=== PATIENT | female | born 1950 | race Caucasian/White ===

== ENCOUNTER 2020-06-27 10:38 | Outpatient (REF) | payer MEDICARE, SELFPAY ==
--- NOTE | 2020-06-27 | MM_ITS ---
EXAMINATION: MM SCREENING DIGITAL BREAST TOMOSYNTHESIS, BILATERAL CLINICAL INFORMATION: Screening. Asymptomatic. The lifetime risk of breast cancer based on the Tyrer-Cuzick Model is 8%. COMPARISON: Mammography: 06/22/2019, 06/05/2018, 06/03/2017 TECHNIQUE: Digital breast tomosynthesis is performed in both the craniocaudal and mediolateral oblique views along with computer-aided detection (CAD). Synthesized 2D images are generated from the tomosynthesis. FINDINGS: There are scattered areas of fibroglandular density (ACR BI-RADS breast composition Category b). There are no significant masses, abnormal calcifications, or other abnormalities. Parenchymal pattern is similar to prior studies. No developing density. Again, there are scattered bilateral round and rim and dermal calcifications. No significant changes. MM/MM tomosynthesis screening BI IMPRESSION: No significant changes from prior studies. ASSESSMENT: BI-RADS 2: Benign RECOMMENDATION: Routine annual mammography screening. This patient's information was entered into a reminder system with a target due date for their next mammogram.
== END 2020-06-27 10:39 | disposition home or self-care (01) ==
LOC: HO.MAMMO 10:38
PROVIDERS: PCP Internal Medicine; Visit Provider Internal Medicine
DX: Z12.31 Encounter for screening mammogram for malignant neoplasm of breast (principal)
CPT/HCPCS: 77063; 77067

== ENCOUNTER 2020-11-10 08:31 | Outpatient (REF) | payer MEDICARE, SELFPAY ==
[2020-11-10 10:12] LABS: MANUAL DIFF FLAG NO
[2020-11-10 10:21] LABS: Basophils Absolute Auto 0.1 X10*3/uL (0.0-0.2); Eosinophils Absolute Auto 0.1 X10*3/uL (0.0-0.4); Eosinophils Percent Auto 1.8 % (0-4); Hematocrit 42.3 % (37-47); Imm Gran Abs Auto 0.01 X10*3/uL (0.00-0.03); Imm Gran Pct Auto 0.2 % (0.0-0.4); Lymphocytes Absolute Auto 1.1 X10*3/uL (1.2-4.9); Lymphocytes Percent Auto 20.8 % (20-40); Mean Corpuscular HGB Conc 33.1 g/dl (31.0-35.0); Mean Corpuscular Hemoglobin 32.1 pg (27.0-33.0); Mean Platelet Volume 10.3 fL (9.4-12.3); Monocytes Absolute Auto 0.4 X10*3/uL (0.1-1.2); Monocytes Percent Auto 8.5 % (2-11); Neutrophils Absolute Auto 3.4 X10*3/uL (2.0-8.3); Neutrophils Percent Auto 67.7 % (45-73); Platelet Count 218 X10*3/uL (160-400); Red Blood Count 4.36 X10*6/uL (4.20-5.50)
[2020-11-10 11:23] LABS: Alanine Aminotransferase 15 U/L (0-31); Anion Gap 12 (12-20); Aspartate Amino Transferase 20 U/L (5-31); Blood Urea Nitrogen 13 mg/dL (9-16); Calcium 9.1 mg/dL (8.4-10.2); Carbon Dioxide 26 mmol/L (22-29); Chloride 108 mmol/L (96-108); Cholesterol 233 mg/dL; Estimated Glomerular Filt Rate > 60; Glucose Fasting 84 mg/dL (60-99); HDL Cholesterol 70 mg/dL; LDL Cholesterol Calculated 145 mg/dl; Potassium 4.1 mmol/L (3.3-5.1); Sodium 142 mmol/L (135-145); Triglycerides 94 mg/dL
[2020-11-10 11:29] LABS: Vitamin D 25-OH Total 43.5 ng/mL (>30)
== END 2020-11-10 08:32 | disposition home or self-care (01) ==
LOC: HO.10HDL 08:31
PROVIDERS: Visit Provider Internal Medicine
DX: Z00.01 Encounter for general adult medical examination with abnormal findings (principal); I10 Essential (primary) hypertension; E78.5 Hyperlipidemia, unspecified; D12.6 Benign neoplasm of colon, unspecified; Z78.0 Asymptomatic menopausal state
CPT/HCPCS: 36415; 80048; 80061; 82306; 84450; 84460; 85025

== ENCOUNTER 2021-07-10 10:01 | Outpatient (REF) | payer MEDICARE, SELFPAY ==
--- NOTE | ~2021-07-10 | MM_ITS ---
EXAMINATION: MM SCREENING DIGITAL BREAST TOMOSYNTHESIS, BILATERAL CLINICAL INFORMATION: Screening. Asymptomatic. The lifetime risk of breast cancer based on the Tyrer-Cuzick Model is 9%. COMPARISON: Mammography: 06/27/2020, 06/22/2019, 06/05/2018 TECHNIQUE: Digital breast tomosynthesis is performed in both the craniocaudal and mediolateral oblique views along with computer-aided detection (CAD). Synthesized 2D images are generated from the tomosynthesis. Additional left MLO view is provided. FINDINGS: There are scattered areas of fibroglandular density (ACR BI-RADS breast composition Category b). There are no significant masses, abnormal calcifications, or other abnormalities. MM/MM tomosynthesis screening BI IMPRESSION: There are no significant changes from prior exams. ASSESSMENT: BI-RADS 2: Benign RECOMMENDATION: Routine annual mammography screening. This patient's information was entered into a reminder system with a target due date for their next mammogram.
== END 2021-07-10 10:02 | disposition home or self-care (01) ==
LOC: HO.MAMMO 10:01
PROVIDERS: PCP Internal Medicine; Visit Provider Internal Medicine
DX: Z12.31 Encounter for screening mammogram for malignant neoplasm of breast (principal)
CPT/HCPCS: 77063; 77067

== ENCOUNTER 2021-11-11 09:25 | Outpatient (REF) | payer MEDICARE, SELFPAY ==
[2021-11-11 11:39] LABS: Alanine Aminotransferase 18 U/L (0-31); Anion Gap 13 (12-20); Aspartate Amino Transferase 19 U/L (5-31); Blood Urea Nitrogen 15 mg/dL (9-16); Calcium 9.4 mg/dL (8.4-10.2); Carbon Dioxide 25 mmol/L (22-29); Chloride 107 mmol/L (96-108); Cholesterol 221 mg/dL; Estimated Glomerular Filt Rate > 60; Glucose Fasting 90 mg/dL (60-99); HDL Cholesterol 58 mg/dL; LDL Cholesterol Calculated 145 mg/dl; Potassium 4.4 mmol/L (3.3-5.1); Sodium 141 mmol/L (135-145); Triglycerides 93 mg/dL
[2021-11-11 12:01] LABS: Vitamin D 25-OH Total 38.3 ng/mL (>30)
== END 2021-11-11 09:26 | disposition home or self-care (01) ==
LOC: HO.HMGCLDS 09:25
PROVIDERS: Visit Provider Internal Medicine
DX: Z00.00 Encounter for general adult medical examination without abnormal findings (principal); N95.9 Unspecified menopausal and perimenopausal disorder; E78.5 Hyperlipidemia, unspecified
CPT/HCPCS: 36415; 80048; 80061; 82306; 84450; 84460

== ENCOUNTER 2022-07-23 09:49 | Outpatient (REF) | payer MEDICARE, SELFPAY ==
--- NOTE | ~2022-07-23 | MM_ITS ---
EXAMINATION: MM SCREENING DIGITAL BREAST TOMOSYNTHESIS, BILATERAL CLINICAL INFORMATION: Screening. Asymptomatic. The lifetime risk of breast cancer based on the Tyrer-Cuzick Model is 6%. COMPARISON: Mammography: 07/10/2021, 06/27/2020, 06/22/2019, 06/05/2018 TECHNIQUE: Digital breast tomosynthesis is performed in both the craniocaudal and mediolateral oblique views along with computer-aided detection (CAD). Synthesized 2D images are generated from the tomosynthesis. FINDINGS: There are scattered areas of fibroglandular density (ACR BI-RADS breast composition Category b). There are no significant masses, abnormal calcifications, or other abnormalities. There are scattered stable minor asymmetries similar to prior studies. Scattered bilateral round, rim, and dermal calcifications are again seen. No significant changes from prior studies. MM/MM tomosynthesis screening BI IMPRESSION: No mammographic evidence of malignancy. ASSESSMENT: BI-RADS 2: Benign RECOMMENDATION: Routine annual mammography screening. This patient's information was entered into a reminder system with a target due date for their next mammogram.
== END 2022-07-23 09:50 | disposition home or self-care (01) ==
LOC: HO.MAMMO 09:49
PROVIDERS: PCP Internal Medicine; Visit Provider Internal Medicine
DX: Z12.31 Encounter for screening mammogram for malignant neoplasm of breast (principal)
CPT/HCPCS: 77063; 77067

== ENCOUNTER 2022-11-17 09:21 | Outpatient (REF) | payer MEDICARE, SELFPAY ==
[2022-11-17 11:09] LABS: Alanine Aminotransferase 18 U/L (0-31); Anion Gap 11 (12-20); Aspartate Amino Transferase 20 U/L (5-31); Blood Urea Nitrogen 15 mg/dL (9-16); Calcium 9.1 mg/dL (8.4-10.2); Carbon Dioxide 27 mmol/L (22-29); Chloride 108 mmol/L (96-108); Cholesterol 245 mg/dL; Estimated Glomerular Filt Rate > 60; Glucose Fasting 90 mg/dL (60-99); HDL Cholesterol 62 mg/dL; LDL Cholesterol Calculated 164 mg/dl; Potassium 4.3 mmol/L (3.3-5.1); Sodium 142 mmol/L (135-145); Triglycerides 98 mg/dL
[2022-11-17 11:18] LABS: Vitamin D 25-OH Total 48.4 ng/mL (>30)
== END 2022-11-17 09:22 | disposition home or self-care (01) ==
LOC: HO.10HDL 09:21
PROVIDERS: Visit Provider Internal Medicine
DX: Z00.01 Encounter for general adult medical examination with abnormal findings (principal); D12.6 Benign neoplasm of colon, unspecified; E78.5 Hyperlipidemia, unspecified
CPT/HCPCS: 36415; 80048; 80061; 82306; 84450; 84460

== ENCOUNTER 2022-11-22 10:57 | Outpatient (REF) | payer MEDICARE, SELFPAY ==
--- NOTE | ~2022-11-22 | MM_ITS ---
EXAMINATION: BONE DENSITOMETRY CLINICAL INDICATION: Asymptomatic menopausal state. COMPARISON: Previous BD dated 06/05/2018 and baseline BD dated 11/25/2008. TECHNIQUE: Using a [employer] Navigation DXA System (software version: 13.1) manufactured by [employer], dual-energy x-ray absorptiometry was performed of the lumbar spine and left hip. The images are of good technical quality. Summary results are attached. FINDINGS: AP SPINE L1-L4: BMD 1.279 g/cm2, Z-score 2.1, T-score 0.8, normal, 1.3% increase from previous, 3.1% increase from baseline (<5% change is not significant). Prior: BMD 1.262 g/cm2. Baseline: BMD 1.241 g/cm2. LEFT FEMUR, NECK: BMD 0.856 g/cm2, Z-score 0.3, T-score -1.3, osteopenia. Prior: BMD 1.023 g/cm2. Baseline: BMD 1.015 g/cm2. LEFT FEMUR, TOTAL: BMD 0.885 g/cm2, Z-score 0.4, T-score -1.0, normal, 12.9% decrease from previous, 12.1% decrease from baseline (<5% change is not significant). Prior: BMD 1.016 g/cm2. Baseline: BMD 1.007 g/cm2. IDENTIFIED RISK FACTORS: Menopause. HISTORY OF FRACTURE: None listed. MEDICATIONS: Calcium supplement or multivitamin. Vitamin D. MM/XR DEXA axial skeleton IMPRESSION: 1. DIAGNOSIS: Osteopenia based on the lowest T-score value of -1.3 in the femoral neck applying World Health Organization criteria. 2. 10-YEAR FRACTURE RISK PREDICTION, FRAX: Major osteoporotic fracture (clinical spine, forearm, hip or shoulder) 10.1%. Hip fracture 1.6%. 3. Treatment Recommendations: NOF guidelines recommend consideration for treatment in postmenopausal women and men age 50 and older presenting with the following: -A hip or vertebral (clinical or morphometric) fracture. -T-score less than or equal to -2.5 at the femoral neck or spine after appropriate evaluation to exclude secondary causes. -Low bone mass at the hip or spine and a 10-year fracture probability by FRAX of greater than or equal to 3% for hip fracture or greater than or equal to 20% for major osteoporotic fracture based on the [place] adapted WHO algorithm. 4. Other Recommendations: All treatment decisions require clinical judgment and consideration of individual patient factors, including patient preferences, comorbidities, previous drug use, risk factors not captured in the FRAX model (e.g. frailty, falls, vitamin D deficiency, increased bone turnover, interval significant decline in bone density) and possible under or overestimation of fracture risk by FRAX. Additional medical evaluation for secondary cause of low bone mineral density may be appropriate. FUTURE SCAN RECOMMENDATION: People with diagnosed cases of osteoporosis or at high risk for fracture should have regular bone mineral density tests. For patients eligible for Medicare, routine testing is allowed once every 2 years. The testing frequency can be increased to one year for patients who have rapidly progressing disease, those who are receiving or discontinuing medical therapy to restore bone mass, or have additional risk factors.
== END 2022-11-22 10:58 | disposition home or self-care (01) ==
LOC: HO.MAMMO 10:57
PROVIDERS: Visit Provider Internal Medicine
DX: Z13.820 Encounter for screening for osteoporosis (principal); Z78.0 Asymptomatic menopausal state
CPT/HCPCS: 77080

== ENCOUNTER → 2022-12-27 11:15 | Outpatient (BNVA) | payer MEDICARE, SELFPAY | PROVIDERS: PCP Internal Medicine; Referring Provider Internal Medicine; Visit Provider Nurse Practitioner Family | DX: Z12.11 Encounter for screening for malignant neoplasm of colon (principal); D12.6 Benign neoplasm of colon, unspecified | CPT/HCPCS: 99202 ==

== ENCOUNTER 2023-06-08 06:09 | Day surgery (SDC) | payer MEDICARE, SELFPAY ==
[2023-06-06 10:28] VITALS: BMI 28.3
--- NOTE | 2023-06-07 12:02 | HO.ANESPROP2 ---
Documented by User: Neena Hernandez NP 06/07/23 12:03 HPI - Anesthesia Eval Consult details Narrative: 72yo F for Colonoscopy PMFSH Active Problems Active Problems: All Active Problems (Updated 11/09/20 @ 10:44 by Shirlene Hua MD) Tubular adenoma of colon (Acute) Dyslipidemia (Acute) Past Medical History Medical History Tubular adenoma of colon Dyslipidemia Family History Family History Father Coronary artery disease History of [place] (myocardial infarction) CVA (cerebral vascular accident) Substance use disorder Mother CVA (cerebral vascular accident) Maternal Grandmother Parkinson's disease Paternal Grandmother Breast cancer Surgical History Surgical History H/O colonoscopy Social History Social History Housing: House Alcohol intake: current Patient Tobacco Use Status: Former Tobacco user e-Cigarette/Vaping Use: Never Used Are you DNR?: No Advance Directives: No Advance Directives Information Provided: Yes Nutrition Risks: No Nutritional Risk service: No Current occupational status: retired Cognitive needs: No Hearing needs: No Vision needs: Yes Meds Allergies Allergy/AdvReac Type Severity Reaction Status Date / Time No Known Allergies Allergy Mild N/A Verified 06/08/23 06:41 Home Medications Medication Instructions Recorded Confirmed Last Taken Type cholecalciferol (vitamin D3) 50 50 mcg PO DAILY 11/10/21 06/06/23 Unknown History mcg (2,000 unit) capsule gnsjdxi-ajixcznyk-yzdw 333 mg-133 1 tab PO DAILY 11/11/21 06/06/23 Unknown History mg-5 mg tablet Exam Exam Date and Time: June 07, 2023 120 Height,Weight and Vital Signs: Height 5 ft 5.5 in Weight 78.471 kg Assessment and Plan Assessment Anesthesia Assessment: Chart Reviewed Documented by User: Roman Capone MD 06/08/23 07:27 [facility] Past Medical History Medical History Tubular adenoma of colon Dyslipidemia Functional capacity: independent ambulation Family History Family History Father Coronary artery disease History of [place] (myocardial infarction) CVA (cerebral vascular accident) Substance use disorder Mother CVA (cerebral vascular accident) Maternal Grandmother Parkinson's disease Paternal Grandmother Breast cancer Family history of problems with anesthesia: No Surgical History Surgical History H/O colonoscopy History of Problems with Anesthesia: No Social History Social History Housing: House Alcohol intake: current Patient Tobacco Use Status: Former Tobacco user e-Cigarette/Vaping Use: Never Used Are you DNR?: No Advance Directives: No Advance Directives Information Provided: Yes Nutrition Risks: No Nutritional Risk service: No Current occupational status: retired Cognitive needs: No Hearing needs: No Vision needs: Yes Meds Allergies Allergy/AdvReac Type Severity Reaction Status Date / Time No Known Allergies Allergy Mild N/A Verified 06/08/23 06:41 Home Medications Medication Instructions Recorded Confirmed Last Taken Type cholecalciferol (vitamin D3) 50 50 mcg PO DAILY 11/10/21 06/06/23 Unknown History mcg (2,000 unit) capsule njveqkq-nicicuegn-bpzp 333 mg-133 1 tab PO DAILY 11/11/21 06/06/23 Unknown History mg-5 mg tablet Exam Airway Mallampati Class: III Loose/Missing/Broken Teeth: Yes Assessment and Plan Final Anesthetic Review Family History of Problems with Anesthesia: No History of Problems with Anesthesia: No Documented by User: Renée Yanez MD 06/08/23 07:54 [facility] Past Medical History Medical History Tubular adenoma of colon Dyslipidemia Family History Family History Father Coronary artery disease History of [place] (myocardial infarction) CVA (cerebral vascular accident) Substance use disorder Mother CVA (cerebral vascular accident) Maternal Grandmother Parkinson's disease Paternal Grandmother Breast cancer Surgical History Surgical History H/O colonoscopy Social History Social History Housing: House Alcohol intake: current Patient Tobacco Use Status: Former Tobacco user e-Cigarette/Vaping Use: Never Used Are you DNR?: No Advance Directives: No Advance Directives Information Provided: Yes Nutrition Risks: No Nutritional Risk service: No Current occupational status: retired Cognitive needs: No Hearing needs: No Vision needs: Yes Meds Allergies Allergy/AdvReac Type Severity Reaction Status Date / Time No Known Allergies Allergy Mild N/A Verified 06/08/23 06:41 Home Medications Medication Instructions Recorded Confirmed Last Taken Type cholecalciferol (vitamin D3) 50 50 mcg PO DAILY 11/10/21 06/06/23 Unknown History mcg (2,000 unit) capsule tgokcyo-aesgkhqxi-xkfe 333 mg-133 1 tab PO DAILY 11/11/21 06/06/23 Unknown History mg-5 mg tablet Exam Airway Mallampati Class: II TM Dist: >3cm Heart: rrr Lungs: cta Assessment and Plan Assessment Anesthesia Assessment: Anesthesia Plan Discussed Final Anesthetic Review NPO: Yes ASA Class: II Final Preanesthetic Review: No Changes in Pt Med Stat, Meds/Allgs Chart Reviewed, Consent Obtained/Reviewed and Anes Risks/Benef Reviewed Patient Risk: Low Procedure Risk: Low Anesthetic Plan Anesthetic Plan: MAC: Disposition: Standard PACU
--- NOTE | 2023-06-08 06:31 | MHC.SHP ---
Pre-Procedural Eval Section A Date of Service: 06/08/23 Section B Chief Complaint: Benign neoplasm of colon, unspecified Relevant Social History: None Present Medications: see Short Stay Collaborative assessment Medical History: Significant History (Tubular adenoma of colon Dyslipidemia) History of Previous Operations: Relevant previous surgery/procedure and date(s) (colonoscopy) Allergies: Allergies Allergy/AdvReac Type Severity Reaction Status Date / Time No Known Allergies Allergy Mild N/A Verified 12/27/22 11:41 Review of Systems Sugical H&P ROS: Negative: Constitution, Cardiovascular, Respiratory, Neurological, Psychiatric, Hem-Onc, Allergic/Immunologic, Gastrointestinal, Genitourinary, Musculoskeletal, Integumentary, Endocrine and Eyes/Ears/Nose/Throat Exam Surgical H&P Exam: Normal: HEENT, Normal: Heart, Normal: Lungs, Normal: Extremities, Normal: Abdomen, Normal: Skin and Normal: Neurological Plan I have reviewed the history and physical and performed a pertinent physical examination on my patient. No changes have occurred unless specified. Time Spent With Patient Time: Total time managing care of this patient today ____ minutes.
[2023-06-08] MEDS: Lactated Ringers 1,000 ML 100 ML IVCONT (06:32)
[2023-06-08 06:41] VITALS: BP 142/81; PULSE 88; RESP 18; TEMP 36.6; O2SAT 96
--- NOTE | 2023-06-08 08:11 | W.PM.OPN ---
Operative Note Operative Note Date of Service: 06/08/23 Narrative: Operative Information Procedure Description: Colonoscopy Indication: screening Anesthesia: MAC COLONOSCOPY Instrument: Olympus variable stiffness pediatric scope 190L Colonoscopy Monitoring: Vital signs and clinical assessment, continuous EKG monitoring, Pulse oximetry, Carbon Dioxide monitoring and blood pressure monitoring were done throughout the procedure. Colon withdrawal time was 11 minutes. Procedure: The patient was placed in the left lateral decubitis position and pre-procedure medications were administered. After a digital rectal examination of the ano-rectum, the video colonoscope was inserted into the rectum and advanced through the colon to the cecum/TI. The colonoscope was slowly withdrawn in a retrograde panoramic fashion and the colon mucosa was carefully examined including a retroflexed view of the rectum. Findings and interventions are described below. Procedure Difficulty: difficult, pressure applied to RLQ to gain access to cecum Findings: Terminal Ileum-not intubated due to looping, Cecum:normal Ascending Colon: few tics noted Transverse Colon -normal Descending Colon:normal Sigmoid Colon: severe diverticulosis with narrow lumen and mucosal hypertrophy Rectum: Retroflexion with medium sized internal hemorrhoids, grade II Anorectum - normal Colon preparation: [place] Bowel Preparation Scale Right colon; 2 Transverse colon: 2 Left colon; 2 (0 = Unprepared colon segment with mucosa not seen due to solid stool that cannot be cleared. 1 = Portion of mucosa of the colon segment seen, but other areas of the colon segment not well seen due to staining, residual stool and/or opaque liquid. 2 = Minor amount of residual staining, small fragments of stool and/or opaque liquid, but mucosa of colon segment seen well. 3 = Entire mucosa of colon segment seen well with no residual staining, small fragments of stool or opaque liquid) Impression and Post Procedure Diagnosis: internal hemorrhoids diverticular disease Plan: High fiber diet leaflet Avoid straining at stool, epsom salts and sitz bath, anusol supps or cream Repeat Colonoscopy in 10 years if health allows or earlier if clinically indicated Above findings were reviewed with the patient and relevant handouts were provided if indicated.
[2023-06-08 08:15] VITALS: BP 105/61; PULSE 63; RESP 20; TEMP 36.3; O2SAT 98
[2023-06-08 08:30] VITALS: BP 123/78; PULSE 68; RESP 18; TEMP 36.1; O2SAT 98
== END 2023-06-08 09:00 | disposition home or self-care (01) ==
PROVIDERS: PCP Internal Medicine; Visit Provider Internal Medicine Gastroenterology
PROC: 0DJD8ZZ Inspection of Lower Intestinal Tract, Via Natural or Artificial Opening Endoscopic (ICD-10-PCS; CPT 45378; principal; 2023-06-08 07:30)
DX: Z12.11 Encounter for screening for malignant neoplasm of colon (principal); Z86.010 Personal history of colon polyps; K57.30 Diverticulosis of large intestine without perforation or abscess without bleeding; K64.1 Second degree hemorrhoids; K56.2 Volvulus; E78.5 Hyperlipidemia, unspecified; Z87.891 Personal history of nicotine dependence; Z79.899 Other long term (current) drug therapy
CPT/HCPCS: G0105

== ENCOUNTER → 2023-06-08 06:09 | Outpatient (BNV) | payer MEDICARE, SELFPAY | PROVIDERS: PCP Internal Medicine; Visit Provider Internal Medicine Gastroenterology | DX: Z12.11 Encounter for screening for malignant neoplasm of colon (principal); K57.30 Diverticulosis of large intestine without perforation or abscess without bleeding; K64.1 Second degree hemorrhoids | CPT/HCPCS: G0121 ==

== ENCOUNTER 2023-06-21 11:52 | Outpatient (AMB) | payer MEDICARE, SELFPAY ==
[2023-06-21 11:54] VITALS: BP 144/71; PULSE 80; O2SAT 98; BMI 25.9
--- NOTE | 2023-06-21 11:54 | MHC.OFFVIS ---
Intake Vital Signs 06/21/23 11:54 Height 5 ft 5.5 in Weight 157 lb 13.616 oz BMI 25.9 BP 144/71 H Blood Pressure Location Rt brachial Position Sitting Pulse 80 Pulse Source Pulse Oximeter Pulse Oximetry (%) 98 Oxygen Delivery Method Room Air Intake Visit Reasons: S/p colon Gonzalez Intake Note: Pt presents to the office today for a s/p Colonoscopy. Pt states she is feeling well and denies any issues at this time. Pt denies any GI upset. Allergies No Known Allergies Allergy (Mild, Verified 06/21/23 11:54) N/A HPI S/p colon Gonzalez HPI Details LAST VISIT: Tubular adenoma of colon Screen for colon cancer Patient denies any GI, cardiac or respiratory symptoms.? Denies any issues with anesthesia in the past.? Denies any history of sleep apnea.? No history infectious diseases in the past or present.? Not on any anticoagulation therapy.? Last colonoscopy patient had tubular adenoma. Patient denies melena, hematochezia, unintentional weight loss or ribbon like stools.? Discussed at length the pre-procedure,? prep, diet & medications as well as what to expect prior, during and after the procedure.?? Stressed the importance of good bowel prep. ?Recommended the use of Vaseline or Calmoseptine OTC & baby wipes with bowel movements to promote comfort.? ?Patient verbalizes understanding and agrees to plan of care.? She was given the opportunity to ask questions and all questions answered.? We will see her after the procedure. COLONOSCOPY Findings: Terminal Ileum-not intubated due to looping, Cecum:normal Ascending Colon: few tics noted Transverse Colon -normal Descending Colon:normal Sigmoid Colon: severe diverticulosis with narrow lumen and mucosal hypertrophy Rectum: Retroflexion with medium sized internal hemorrhoids, grade II Anorectum - normal Colon preparation: [place] Bowel Preparation Scale Right colon; 2 Transverse colon: 2 Left colon; 2 (0 = Unprepared colon segment with mucosa not seen due to solid stool that cannot be cleared. 1 = Portion of mucosa of the colon segment seen, but other areas of the colon segment not well seen due to staining, residual stool and/or opaque liquid. 2 = Minor amount of residual staining, small fragments of stool and/or opaque liquid, but mucosa of colon segment seen well. 3 = Entire mucosa of colon segment seen well with no residual staining, small fragments of stool or opaque liquid) Impression and Post Procedure Diagnosis: internal hemorrhoids diverticular disease Plan: High fiber diet leaflet Avoid straining at stool, epsom salts and sitz bath, anusol supps or cream Repeat Colonoscopy in 10 years if health allows or earlier if clinically indicated TODAY'S VISIT: Patient is here today for follow-up and to discuss colonoscopy results. Patient denies any ill effects from the prep, anesthesia procedure itself. Patient states that she has been feeling well. Denies any abdominal pain or discomfort. Denies any melena, hematochezia, unintentional weight loss or ribbon like stools. Patient denies any GI concerning symptoms today or since the procedure. Wishes to follow-up on as needed basis [facility] Medical History Tubular adenoma of colon Dyslipidemia Surgical History H/O colonoscopy Family History Father Coronary artery disease History of [place] (myocardial infarction) CVA (cerebral vascular accident) Substance use disorder Mother CVA (cerebral vascular accident) Maternal Grandmother Parkinson's disease Paternal Grandmother Breast cancer Social History (Updated 06/21/23 @ 11:59 by Eve Grant MA) Housing: House Alcohol intake: never Patient Tobacco Use Status: Former Tobacco user e-Cigarette/Vaping Use: Never Used service: No Current occupational status: retired Cognitive needs: No Hearing needs: No Vision needs: Yes Review of Systems Const Denies weight gain and Denies weight loss ENT Reports no additional complaints, Denies dysphagia and Denies odynophagia Card Reports no additional complaints Resp Reports no additional complaints GI Denies abdominal pain, Denies belching, Denies melena, Denies bloating, Denies change in bowel habits, Denies dysphagia, Denies excessive flatus, Denies dyspepsia, Denies heartburn, Denies diarrhea, Denies loose stools, Denies nausea, Denies odynophagia and Denies vomiting Reports no additional complaints Musc Reports no additional complaints Neuro Reports no additional complaints Psych Reports no additional complaints Endo Reports no additional complaints Physical Exam Vital Signs: Last Vital Signs Pulse 80 06/21/23 11:54 BP 144/71 H 06/21/23 11:54 Pulse Ox 98 06/21/23 11:54 Oxygen Delivery Method Room Air 06/21/23 11:54 BMI result Body Mass Index 25.9 Const General: healthy appearing, no acute distress and well developed Nutritional Appearance: well nourished Orientation/consciousness: patient oriented x3 HEENT Head: Yes normal to inspection, Yes normocephalic and Yes atraumatic Face and sinus: Yes normal facial exam Mouth: Normal oral and palatal mucosa present Throat: Yes posterior oropharynx normal, Yes tonsils normal and Yes uvula midline Eyes General: appearance normal, both eyes and all related structures Neck Neck: Yes normal visual inspection, Yes full ROM and Yes trachea midline Thyroid: Thyroid normal Resp Effort & Inspection: normal respiratory effort, able to speak in complete sentences, no tracheal deviation and symmetric chest movement Auscultation: clear to auscultation bilaterally Cardio Rate: regular rate Heart sounds: S1 normal heart sound present and S2 normal heart sound present GI Inspection: Yes normal to inspection and No distended Palpation (GI): Soft to palpation, not firm, nontender and No hepatosplenomegaly present Auscultation: normal bowel sounds General: Yes no CVA tenderness Back/Spine/Pelvis Back: no CVA tenderness Skin General skin exam: elasticity normal, turgor normal and dry skin Neuro General: patient oriented x3 Psych Appearance: grossly normal Mental Status: mental status grossly normal Assessment & Plan Assessment & Plan (1) Status post colonoscopy: Code(s): Z98.890 - Other specified postprocedural states Plan Patient had tubular adenoma in 2018 and 2019. She will return in 5 years instead of 10 years for colorectal screening. Patient is agreeable to this plan and verbalizes understanding of instructions. She will follow up on as needed basis. She was given the opportunity to ask questions and all questions answered. Thank you for allowing me to participate in her care Coding Level of Care Code Est Pt Level 3 (10631) Diagnoses Status post colonoscopy Z98.890 Time Spent (min) 25 Comment 15 minutes spent with patient and additional 10 minutes spent reviewing her records
== END 2023-06-21 13:22 | disposition home or self-care (01) ==
PROVIDERS: PCP Internal Medicine; Visit Provider Nurse Practitioner Family
DX: Z98.890 Other specified postprocedural states (principal)
CPT/HCPCS: 99213

== ENCOUNTER → 2023-06-21 11:52 | Outpatient (BNVA) | payer MEDICARE, SELFPAY | PROVIDERS: PCP Internal Medicine; Visit Provider Nurse Practitioner Family | DX: Z98.890 Other specified postprocedural states (principal) | CPT/HCPCS: 99212 ==

== ENCOUNTER 2023-09-02 09:50 | Outpatient (REF) | payer MEDICARE, SELFPAY | END 2023-09-02 09:51 | disposition home or self-care (01) | LOC: HO.MAMMO 09:50 | PROVIDERS: PCP Internal Medicine; Visit Provider Internal Medicine | DX: Z12.31 Encounter for screening mammogram for malignant neoplasm of breast (principal) | CPT/HCPCS: 77063; 77067 ==

== ENCOUNTER → 2023-09-02 10:00 | Outpatient (BNV) | payer MEDICARE, SELFPAY | PROVIDERS: PCP Internal Medicine; Visit Provider Radiology Diagnostic Radiology | DX: Z12.31 Encounter for screening mammogram for malignant neoplasm of breast (principal) | CPT/HCPCS: 77063; 77067 ==

== ENCOUNTER 2023-11-23 10:50 | Outpatient (AMB) | payer MEDICARE, SELFPAY ==
[2023-11-23 11:26] VITALS: BP 130/72; PULSE 83; O2SAT 96; BMI 26.1
--- NOTE | 2023-11-23 11:26 | MHC.PC.OV ---
Vital Signs 11/23/23 11:26 Height 5 ft 5.5 in Weight 159 lb 7 oz BMI 26.1 BP 130/72 Blood Pressure Location Rt brachial Position Sitting Pulse 83 Pulse Source Pulse Oximeter Pulse Oximetry (%) 96 Oxygen Delivery Method Room Air Intake Visit Reasons: PE Intake Note: Pt is here today for a Annual Physical. Last Mammogram 09/02/23 Last Colonoscopy 05/2023 Last Bone Density 11/22/22 Allergies No Known Allergies Allergy (Mild, Verified 11/23/23 11:48) N/A Medication List - Last Reconciled 11/23/23 by Shirlene Hua MD [id number] mg 1 tab PO DAILY cholecalciferol (vitamin D3) 50 mcg PO DAILY Tobacco use date assessed: 11/23/23 Fall risk assessment: No Falls in past year Last assessed Fall Risk: 11/23/23 Dental Screening Dental Screen Date: 11/23/23 Did you have a dental visit in the last 12 months?: Yes Did you have a dental problem in the last 6 months where you did not have access to dental care?: No Was dental information given to patient?: Patient has dentist HPI PE HPI Details 73-year-old lady with history of dyslipidemia and tubular adenoma of colon, here today for her physical exam. She is up-to-date with her screening mammogram, last done 09/02/23 with benign findings and had a bone density scan done 11/22/2022 which showed only presence of beginning osteopenia in her left femoral neck. No history of fractures. She stays active, walks every day for exercise and takes calcium and magnesium supplements. Her last screening colonoscopy was done 06/08/2023 with no polyps seen, presence of hemorrhoids and diverticulosis only noted. However due to history of adenomatous polyps in the past, she is due for a recheck again in 2027. [facility] Medical History History of adenomatous polyp of colon Tubular adenoma of colon Dyslipidemia Surgical History (Updated 11/23/23 @ 12:21 by Shirlene Hua MD) H/O colonoscopy Family History Father Coronary artery disease History of CA (myocardial infarction) CVA (cerebral vascular accident) Substance use disorder Mother CVA (cerebral vascular accident) Maternal Grandmother Parkinson's disease Paternal Grandmother Breast cancer Social History Housing: House Alcohol intake: never Patient Tobacco Use Status: Former Tobacco user e-Cigarette/Vaping Use: Never Used service: No Current occupational status: retired Cognitive needs: No Hearing needs: No Vision needs: Yes Questionnaire PHQ-9 Over the last 2 weeks, how often have you been bothered by any of the following problems? 1. Little interest or pleasure in doing things: not at all 2. Feeling down, depressed, or hopeless: not at all 3. Trouble falling or staying asleep, or sleeping too much: not at all 4. Feeling tired or having little energy: not at all 5. Poor appetite or overeating: not at all 6. Feeling bad about yourself - or that you are a failure or have let yourself or your family down: not at all 7. Trouble concentrating on things, such as reading the newspaper or watching television: not at all 8. Moving or speaking so slowly that other people could have noticed. Or the opposite - being so fidgety or restless that you have been moving around a lot more than usual: not at all 9. Thoughts that you would be better off or of hurting yourself in some way: not at all Total score: 0 Depression Screening Interpretation: Negative Depression Screening Done: Yes 84891 - PHQ-9 Billing: Yes Source: Developed by Drs. Dharmesh Cool, Diane Pace, Sawyer Wong and colleagues, with an educational waylon from [employer]. Thrive Questionnaire Date Thrive assessed: 11/23/23 I am a: Patient What is your living situation today?: I have a steady place to live Within the past 12 months, did the food you bought not last and you didn't have the money to get more?: Never true Within the past 12 months, did you worry whether your food would run out before you got money to buy more?: Never true Do you have trouble paying for medicines?: No Do you have trouble getting transportation to medical appointments?: No Do you have trouble paying your heating and electricity bill?: No Do you have trouble taking care of your child, family member or friend?: No Do you have trouble with day-to-day activities such as bathing, preparing meals, shopping, managing finances, etc.?: No Are you currently unemployed and looking for a job?: No Are you interested in more education?: No THRIVE Score: 0 AUDIT C Alcohol Use Questionnaire (AUDIT-C) 1. How often do you have a drink containing alcohol?: Monthly or less 2. How many drinks containing alcohol do you have on a typical day when you are drinking?: 1 or 2 3. How often do you have six or more drinks on one occasion?: Never Total Score: 1 Score Reviewed/Action Taken: Yes MADISON-7 AMB Questionnaire MADISON-7 Date MADISON - 7 assessed: 11/23/23 Feeling nervous, anxious, or on edge: 0 = Not at all Not being able to stop or control worryin = Not at all Worrying too much about different things: 0 = Not at all Trouble relaxin = Not at all Being so restless that it is hard to sit still: 0 = Not at all Becoming easily annoyed or irritable: 0 = Not at all Feeling afraid as if something awful might happen: 0 = Not at all Total MADISON-7 score (0-4 normal; 5-9 mild; 10-14 moderate; 15-21 severe): 0 Source: Developed by Drs. Dharmesh Cool, Diane Pace, Sawyer Wong and colleagues, with an educational waylon from [employer] 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, beginning cataracts noted on right eye Reports no additional complaints ENT Reports no additional complaints Card Denies chest pain at rest, Denies chest pain with activity, Denies irregular heart rhythm, Denies lightheadedness, Denies dyspnea and Denies dyspnea on exertion Resp Denies cough, Denies dyspnea and Denies dyspnea on exertion GI Reports no additional complaints Reports no additional complaints and Denies urinary incontinence Musc Reports no additional complaints and Denies abnormal gait Skin/Breast Denies breast skin changes, Denies breast pain, Denies breast mass, Denies lesions and Denies rash Neuro Reports no additional complaints and Denies abnormal gait Psych Reports no additional complaints Endo Reports no additional complaints Ok/Lymph Reports no additional complaints Aller/Immun Reports no additional complaints Physical exam (Primary Care) Vital Signs: Last Vital Signs Pulse 83 11/23/23 11:26 BP 130/72 11/23/23 11:26 Pulse Ox 96 11/23/23 11:26 Oxygen Delivery Method Room Air 11/23/23 11:26 BMI result Body Mass Index 26.1 Tobacco/Smoking Status: Tobacco use Status Tobacco use date assessed 11/23/23 11/23/23 11:32 Patient Tobacco Use Status Former Tobacco user 11/23/23 11:28 e-Cigarette/Vaping Use Never Used 11/23/23 11:28 PHQ-9: PHQ-9 Score PHQ-9: Total score 0 11/23/23 12:56 Depression Screening Interpretation: Negative Thrive Assessment: Date of Thrive Assessment Date Thrive assessed 11/23/23 11/23/23 12:32 Const Other: Alert oriented x3 no acute distress noted ambulatory with normal gait Orientation/consciousness: patient oriented x3 HENMT Head: Yes normocephalic Ears: hearing grossly normal bilaterally, external ears normal, TM's normal bilaterally and EAC's normal General nose exam: Normal external nose present and No nasal discharge present Face and sinus: Yes face symmetric Mouth: Normal oral and palatal mucosa present, oropharynx normal and moist mucous membranes Eyes General: appearance normal, both eyes and all related structures Neck Neck: Yes full ROM, Yes no lymphadenopathy and Yes supple Thyroid: Thyroid normal Chest Breast/axilla palpation: normal palpation of the breasts Resp Auscultation: clear to auscultation bilaterally Cardio Other: S1-S2 present regular rate and rhythm no murmurs GI Other: Normal bowel sounds, soft, nontender, no mass palpated General: Yes no CVA tenderness Back/Spine/Pelvis Back: no CVA tenderness and No back tenderness Skin General skin exam: no rashes or lesions noted Neuro General: patient oriented x3, gait normal, tone normal, moves all extremities, Normal light touch and pain sensation, no focal motor deficits and CN's II-XI intact bilaterally Extrem General: Yes normal to inspection, Yes full ROM, Yes capillary refill normal, Yes no joint enlargement, Yes no pedal edema, Yes no calf tenderness and Yes normal gait Psych Appearance: grossly normal Mental Status: mental status grossly normal Speech and movement: Normal speech and movement present Affect: normal affect Attitude: cooperative Thought process: Normal thought process present Thought content: Normal thought content present Assessment and Plan Assessment & Plan (1) Annual visit for general adult medical examination with abnormal findings: Code(s): Z00.01 - Encounter for general adult medical examination with abnormal findings Plan: Recent fasting labs reviewed with patient.. Continue with regular dental visit every 6 months and regular eye exams, at least every 2 years. Continue with vitamin-D 3 and calcium supplement, in addition to weight-bearing exercises to help maintain good muscle tone and weight control. Instructed to do self-breast exam, and continue with yearly mammogram, currently up-to-date, up-to-date also with her bone density scan done in 2022 which showed presence of beginning osteopenia left femoral neck. Repeat again in 2024. Up-to-date with her screening colonoscopy done in 2022, due again in 2027 due to history of adenomatous polyp removed on previous colonoscopy screenings up-to-date with her vaccines, reminded to get her shingles vaccine (2) Dyslipidemia: Code(s): E78.5 - Hyperlipidemia, unspecified Plan: Repeat screening colonoscopy due again in 2027 (3) History of adenomatous polyp of colon: Code(s): Z86.010 - Personal history of colonic polyps Plan: Fasting lipid panel ordered today, continue adherence to healthy eating habits, getting regular exercise, walks daily Orders: Orders Lipid Panel Today D12.6 - Benign neoplasm of colon, unspecified, E78.5 - Hyperlipidemia, unspecified, Z00.01 - Encounter for general adult medical examination with abnormal findings, Z86.010 - Personal history of colonic polyps Aspartate Amino Transferase Today D12.6 - Benign neoplasm of colon, unspecified, E78.5 - Hyperlipidemia, unspecified, Z00.01 - Encounter for general adult medical examination with abnormal findings, Z86.010 - Personal history of colonic polyps Complete Blood Count Auto Diff Today D12.6 - Benign neoplasm of colon, unspecified, E78.5 - Hyperlipidemia, unspecified, Z00.01 - Encounter for general adult medical examination with abnormal findings, Z86.010 - Personal history of colonic polyps Vitamin D 25-OH Total Today D12.6 - Benign neoplasm of colon, unspecified, E78.5 - Hyperlipidemia, unspecified, Z00.01 - Encounter for general adult medical examination with abnormal findings, Z86.010 - Personal history of colonic polyps Alanine Aminotransferase Today D12.6 - Benign neoplasm of colon, unspecified, E78.5 - Hyperlipidemia, unspecified, Z00.01 - Encounter for general adult medical examination with abnormal findings, Z86.010 - Personal history of colonic polyps Basic Metabolic Panel Fasting Today D12.6 - Benign neoplasm of colon, unspecified, E78.5 - Hyperlipidemia, unspecified, Z00.01 - Encounter for general adult medical examination with abnormal findings, Z86.010 - Personal history of colonic polyps Coding Level of Care Code Est Pt Prev Care >65y(63145) Diagnoses Annual visit for general adult medical examination with abnormal findings Z00.01 Dyslipidemia E78.5 History of adenomatous polyp of colon Z86.010 Additional Codes MADISON-7 Assessment Billing - MADISON-7 Assessment Tool: MADISON-7 Assessment [id number] ([id number])
== END 2023-11-23 12:11 | disposition home or self-care (01) ==
PROVIDERS: Visit Provider Internal Medicine
DX: Z00.00 Encounter for general adult medical examination without abnormal findings (principal); E78.5 Hyperlipidemia, unspecified; Z86.010 Personal history of colon polyps
CPT/HCPCS: 99397

== ENCOUNTER 2023-11-24 10:25 | Outpatient (REF) | payer MEDICARE, SELFPAY ==
[2023-11-24 11:05] LABS: MANUAL DIFF FLAG NO
[2023-11-24 11:11] LABS: Basophils Absolute Auto 0.1 X10*3/uL (0.0-0.2); Eosinophils Absolute Auto 0.1 X10*3/uL (0.0-0.4); Eosinophils Percent Auto 2.5 % (0-4); Hematocrit 40.5 % (37.0-47.0); Hemoglobin 13.8 g/dl (12.0-16.0); Imm Gran Abs Auto 0.01 X10*3/uL (0.00-0.03); Imm Gran Pct Auto 0.2 % (0.0-0.4); Lymphocytes Absolute Auto 1.2 X10*3/uL (1.2-4.9); Lymphocytes Percent Auto 23.7 % (20-40); Mean Corpuscular HGB Conc 34.1 g/dl (31.0-35.0); Mean Corpuscular Hemoglobin 32.2 pg (27.0-33.0); Mean Corpuscular Volume 94.4 fL (80.0-98.0); Mean Platelet Volume 9.6 fL (9.4-12.3); Monocytes Absolute Auto 0.4 X10*3/uL (0.1-1.2); Monocytes Percent Auto 7.9 % (2-11); Neutrophils Absolute Auto 3.4 x10*3/uL (2.0-8.3); Neutrophils Percent Auto 64.7 % (45-73); Platelet Count 220 X10*3/uL (160-400); Red Blood Count 4.29 X10*6/uL (4.20-5.50); Red Cell Distribution Width 12.1 % (11.0-16.0); White Blood Count 5.2 X10*3/uL (4.8-10.8)
[2023-11-24 11:38] LABS: Alanine Aminotransferase 17 U/L (0-31); Anion Gap 11 (12-20); Aspartate Amino Transferase 20 U/L (5-31); Blood Urea Nitrogen 15 mg/dL (9-16); Calcium 9.6 mg/dL (8.4-10.2); Carbon Dioxide 27 mmol/L (22-29); Chloride 107 mmol/L (96-108); Cholesterol 230 mg/dL (<200); Estimated Glomerular Filt Rate > 60; Glucose Fasting 96 mg/dL (60-99); HDL Cholesterol 62 mg/dL (>40); LDL Cholesterol Calculated 148 mg/dL (<100); Potassium 4.1 mmol/L (3.3-5.1); Sodium 141 mmol/L (135-145); Triglycerides 102 mg/dL (<150)
[2023-11-24 11:40] LABS: Vitamin D 25-OH Total 55.4 ng/mL (>30)
== END 2023-11-24 10:26 | disposition home or self-care (01) ==
LOC: HO.10HDL 10:25
PROVIDERS: Visit Provider Internal Medicine
DX: Z00.01 Encounter for general adult medical examination with abnormal findings (principal); D12.6 Benign neoplasm of colon, unspecified; E78.5 Hyperlipidemia, unspecified; Z86.010 Personal history of colon polyps
CPT/HCPCS: 36415; 80048; 80061; 82306; 84450; 84460; 85025

== ENCOUNTER 2024-09-07 09:55 | Outpatient (REF) | payer MEDICARE, SELFPAY | END 2024-09-07 09:56 | disposition home or self-care (01) | LOC: HO.MAMMO 09:55 | PROVIDERS: PCP Internal Medicine; Visit Provider Internal Medicine | DX: Z12.31 Encounter for screening mammogram for malignant neoplasm of breast (principal) | CPT/HCPCS: 77063; 77067 ==

== ENCOUNTER → 2024-09-07 10:00 | Outpatient (BNV) | payer MEDICARE, SELFPAY | PROVIDERS: PCP Internal Medicine; Visit Provider Internal Medicine | DX: Z12.31 Encounter for screening mammogram for malignant neoplasm of breast (principal) | CPT/HCPCS: 77063; 77067 ==

== ENCOUNTER 2024-12-03 10:46 | Outpatient (AMB) | payer MEDICARE, SELFPAY ==
--- NOTE | 2024-12-03 11:16 | MHC.PC.OV ---
Vital Signs 12/03/24 11:32 Height 5 ft 5.5 in Weight 173 lb BMI 28.3 BP 132/74 Blood Pressure Location Lt brachial Position Sitting Respiration 16 Pulse 77 Pulse Source Pulse Oximeter Temp 97.8 F Temp Source Oral Pulse Oximetry (%) 94 Oxygen Delivery Method Room Air Intake Visit Reasons: PE Intake Note: Pt is here today for her PE: last mammogram 09/07/24, bone density scan 11/22/22, colonoscopy 06/08/23 Allergies No Known Allergies Allergy (Mild, Verified 12/03/24 11:54) N/A Medication List - Last Reconciled 12/03/24 by Shirlene Hua MD [id number] mg 1 tab PO DAILY cholecalciferol (vitamin D3) 50 mcg PO DAILY Tobacco use date assessed: 12/03/24 Fall risk assessment: No Falls in past year Last assessed Fall Risk: 12/03/24 Dental Screening Dental Screen Date: 12/03/24 Did you have a dental visit in the last 12 months?: Yes Did you have a dental problem in the last 6 months where you did not have access to dental care?: No Was dental information given to patient?: Patient has dentist HPI PE HPI Details 74-year-old lady with history of dyslipidemia, adenomatous polyp of colon on previous colonoscopy, has osteopenia of left femoral neck, here today for her physical exam. Has been feeling well, no accompanying complaints. She is up-to-date with her breast cancer screening, last mammogram done earlier this year on 09/07/2024 with benign findings. She had a screening colonoscopy done 06/08/2023 showing hemorrhoids and diverticulosis, done by Dr. Gonzalez but due to history of polyps in the past, repeat colonoscopy is to be done again in 2027. Bone density was done 11/22/2022 which showed presence of osteopenia of left femoral neck, no history of fracture COUNT INCLUDES THE [facility] Medical History (Updated 12/03/24 @ 12:01 by Shirlene Hua MD) Osteopenia of left femoral neck History of adenomatous polyp of colon Tubular adenoma of colon Dyslipidemia Surgical History H/O colonoscopy Family History Father Coronary artery disease History of CO (myocardial infarction) CVA (cerebral vascular accident) Substance use disorder Mother CVA (cerebral vascular accident) Maternal Grandmother Parkinson's disease Paternal Grandmother Breast cancer Social History Housing: House Alcohol intake: never Patient Tobacco Use Status: Former Tobacco user e-Cigarette/Vaping Use: Never Used service: No Current occupational status: retired Cognitive needs: No Hearing needs: No Vision needs: Yes Questionnaire PHQ-9 Over the last 2 weeks, how often have you been bothered by any of the following problems? 1. Little interest or pleasure in doing things: not at all 2. Feeling down, depressed, or hopeless: not at all 3. Trouble falling or staying asleep, or sleeping too much: not at all 4. Feeling tired or having little energy: not at all 5. Poor appetite or overeating: not at all 6. Feeling bad about yourself - or that you are a failure or have let yourself or your family down: not at all 7. Trouble concentrating on things, such as reading the newspaper or watching television: not at all 8. Moving or speaking so slowly that other people could have noticed. Or the opposite - being so fidgety or restless that you have been moving around a lot more than usual: not at all 9. Thoughts that you would be better off or of hurting yourself in some way: not at all Total score: 0 Depression Screening Interpretation: Negative Depression Screening Done: Yes 49961 - PHQ-9 Billing: Yes Source: Developed by Drs. Dharmesh Cool, Diane Pace, Sawyer Wong and colleagues, with an educational waylon from [employer]. Thrive Questionnaire Date Thrive assessed: 11/26/24 I am a: Patient What is your living situation today?: I have a steady place to live Within the past 12 months, did the food you bought not last and you didn't have the money to get more?: Never true Within the past 12 months, did you worry whether your food would run out before you got money to buy more?: Never true Do you have trouble paying for medicines?: No Do you have trouble getting transportation to medical appointments?: No Do you have trouble paying your heating and electricity bill?: No Do you have trouble taking care of your child, family member or friend?: No Do you have trouble with day-to-day activities such as bathing, preparing meals, shopping, managing finances, etc.?: No Are you currently unemployed and looking for a job?: No Are you interested in more education?: No Please select the resources that you would like help with: None Currently or been in a relationship where the following occur: No concerns reported THRIVE Score: 0 AUDIT C Alcohol Use Questionnaire (AUDIT-C) 1. How often do you have a drink containing alcohol?: 2-4 times a month 2. How many drinks containing alcohol do you have on a typical day when you are drinking?: 1 or 2 3. How often do you have six or more drinks on one occasion?: Never Total Score: 2 MADISON-7 AMB Questionnaire MADISON-7 Date MADISON - 7 assessed: 12/03/24 Feeling nervous, anxious, or on edge: 0 = Not at all Not being able to stop or control worryin = Not at all Worrying too much about different things: 0 = Not at all Trouble relaxin = Not at all Being so restless that it is hard to sit still: 0 = Not at all Becoming easily annoyed or irritable: 0 = Not at all Source: Developed by Drs. Dharmesh Cool, Diane Pace, Sawyer Wong and colleagues, with an educational waylon from [employer]. 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, beginning cataracts noted on right eye Reports no additional complaints ENT Reports no additional complaints Card Denies chest pain at rest, Denies chest pain with activity, Denies irregular heart rhythm, Denies lightheadedness, Denies dyspnea and Denies dyspnea on exertion Resp Denies cough, Denies dyspnea and Denies dyspnea on exertion GI Reports no additional complaints Reports no additional complaints and Denies urinary incontinence Musc Reports no additional complaints and Denies abnormal gait Skin/Breast Denies breast skin changes, Denies breast pain, Denies breast mass, Reports lesions (Dry scaly raised patches on back) and Denies rash Neuro Reports no additional complaints and Denies abnormal gait Psych Reports no additional complaints Endo Reports no additional complaints Ok/Lymph Reports no additional complaints Aller/Immun Reports no additional complaints Physical exam (Primary Care) Vital Signs: Last Vital Signs Temp 97.8 F 12/03/24 11:32 Pulse 77 12/03/24 11:32 Resp 16 12/03/24 11:32 BP 132/74 12/03/24 11:32 Pulse Ox 94 12/03/24 11:32 Oxygen Delivery Method Room Air 12/03/24 11:32 BMI result Body Mass Index 28.3 Tobacco/Smoking Status: Tobacco use Status Tobacco use date assessed 12/03/24 12/03/24 11:19 Patient Tobacco Use Status Former Tobacco user 12/03/24 11:19 e-Cigarette/Vaping Use Never Used 12/03/24 11:19 PHQ-9: PHQ-9 Score PHQ-9: Total score 0 12/03/24 11:55 Depression Screening Interpretation: Negative Thrive Assessment: Date of Thrive Assessment Date Thrive assessed 11/26/24 12/03/24 11:19 Currently or been in a relationship where the following occur: No concerns reported Const Other: Alert oriented x3 no acute distress noted ambulatory with normal gait Orientation/consciousness: patient oriented x3 HENAK Head: Yes normocephalic Ears: hearing grossly normal bilaterally, external ears normal, TM's normal bilaterally and EAC's normal General nose exam: Normal external nose present and No nasal discharge present Face and sinus: Yes face symmetric Mouth: Normal oral and palatal mucosa present, oropharynx normal and moist mucous membranes Eyes General: appearance normal, both eyes and all related structures Neck Neck: Yes full ROM, Yes no lymphadenopathy and Yes supple Thyroid: Thyroid normal Chest Breast/axilla palpation: normal palpation of the breasts Resp Auscultation: clear to auscultation bilaterally Cardio Other: S1-S2 present regular rate and rhythm no murmurs GI Other: Normal bowel sounds, soft, nontender, no mass palpated General: Yes no CVA tenderness Back/Spine/Pelvis Back: no CVA tenderness and No back tenderness Skin General skin exam: no rashes or lesions noted Neuro General: patient oriented x3, gait normal, tone normal, moves all extremities, Normal light touch and pain sensation, no focal motor deficits and CN's II-XI intact bilaterally Extrem General: Yes normal to inspection, Yes full ROM, Yes capillary refill normal, Yes no joint enlargement, Yes no pedal edema, Yes no calf tenderness and Yes normal gait Psych Appearance: grossly normal Mental Status: mental status grossly normal Speech and movement: Normal speech and movement present Affect: normal affect Attitude: cooperative Thought process: Normal thought process present Thought content: Normal thought content present Coding Level of Care Code Est Pt Prev Care >65y(76411) Diagnoses Annual visit for general adult medical examination with abnormal findings Z00. Osteopenia of left femoral neck M85.852 Dyslipidemia E78.5 Screening for Malignant Neoplasm of Skin Z. Skin lesion of back L98.9 Additional Codes PHQ-9 - 64981 - PHQ-9 Billing: Yes ([id number]) Assessment & Plan Assessment & Plan (1) Annual visit for general adult medical examination with abnormal findings: Code(s): Z00. - Encounter for general adult medical examination with abnormal findings Plan: Ordered fasting labs. Recommended dental visit every 6 months and regular eye exams, at least every 2 years. Take adequate calcium in diet and vitamin-D 3 at 2000 IU per cap once a day, in addition to weight-bearing exercises to help maintain good muscle tone and weight control. Instructed to do self-breast exam, and continue with yearly mammogram. Will repeat another bone density scan. Colonoscopy screening not due again until 2027. She is up-to-date with all her vaccinations (2) Osteopenia of left femoral neck: Code(s): M85.852 - Other specified disorders of bone density and structure, left thigh Category: Medical Plan: Ordered a repeat vitamin-D level and serum calcium. Bone density scan ordered (3) Dyslipidemia: Code(s): E78.5 - Hyperlipidemia, unspecified Category: Medical Plan: Will check fasting lipid panel and liver enzymes. Reinforced importance of following low-cholesterol diet and getting regular exercise (4) Screening for Malignant Neoplasm of Skin: Code(s): Z12.83 - Encounter for screening for malignant neoplasm of skin Plan: Dermatology consult ordered (5) Skin lesion of back: Code(s): L98.9 - Disorder of the skin and subcutaneous tissue, unspecified Plan: Dermatology consult ordered Orders: Orders MM tomosynthesis screening BI 09/16/25 M85.852 - Other specified disorders of bone density and structure, left thigh, Z12.31 - Encounter for screening mammogram for malignant neoplasm of breast, Z78.0 - Asymptomatic menopausal state XR DEXA axial skeleton 09/16/25 M85.852 - Other specified disorders of bone density and structure, left thigh, Z12.31 - Encounter for screening mammogram for malignant neoplasm of breast, Z78.0 - Asymptomatic menopausal state Vitamin D 25-OH Total 12/07/24 E78.5 - Hyperlipidemia, unspecified, M85.852 - Other specified disorders of bone density and structure, left thigh, Z00.01 - Encounter for general adult medical examination with abnormal findings, Z13.1 - Encounter for screening for diabetes mellitus, Z86.010 - Personal history of colon polyps Vitamin B12 and Folate 12/07/24 E78.5 - Hyperlipidemia, unspecified, M85.852 - Other specified disorders of bone density and structure, left thigh, Z00.01 - Encounter for general adult medical examination with abnormal findings, Z13.1 - Encounter for screening for diabetes mellitus, Z86.010 - Personal history of colon polyps Lipid Panel 12/07/24 E78.5 - Hyperlipidemia, unspecified, M85.852 - Other specified disorders of bone density and structure, left thigh, Z00.01 - Encounter for general adult medical examination with abnormal findings, Z13.1 - Encounter for screening for diabetes mellitus, Z86.010 - Personal history of colon polyps Alanine Aminotransferase 12/07/24 E78.5 - Hyperlipidemia, unspecified, M85.852 - Other specified disorders of bone density and structure, left thigh, Z00.01 - Encounter for general adult medical examination with abnormal findings, Z13.1 - Encounter for screening for diabetes mellitus, Z86.010 - Personal history of colon polyps Aspartate Amino Transferase 12/07/24 E78.5 - Hyperlipidemia, unspecified, M85.852 - Other specified disorders of bone density and structure, left thigh, Z00.01 - Encounter for general adult medical examination with abnormal findings, Z13.1 - Encounter for screening for diabetes mellitus, Z86.010 - Personal history of colon polyps Basic Metabolic Panel Fasting 12/07/24 E78.5 - Hyperlipidemia, unspecified, M85.852 - Other specified disorders of bone density and structure, left thigh, Z00.01 - Encounter for general adult medical examination with abnormal findings, Z13.1 - Encounter for screening for diabetes mellitus, Z86.010 - Personal history of colon polyps Referrals Dermatology Referral L98.9 - Disorder of the skin and subcutaneous tissue, unspecified, Z12.83 - Encounter for screening for malignant neoplasm of skin
[2024-12-03 11:32] VITALS: BP 132/74; PULSE 77; RESP 16; TEMP 36.6; O2SAT 94; BMI 28.3
== END 2024-12-03 12:18 | disposition home or self-care (01) ==
LOC: HO.HMCC 10:46
PROVIDERS: PCP Internal Medicine; Visit Provider Internal Medicine
DX: Z00.01 Encounter for general adult medical examination with abnormal findings (principal); M85.852 Other specified disorders of bone density and structure, left thigh; E78.5 Hyperlipidemia, unspecified; Z12.83 Encounter for screening for malignant neoplasm of skin; L98.9 Disorder of the skin and subcutaneous tissue, unspecified

== ENCOUNTER → 2024-12-03 10:46 | Outpatient (BNVA) | payer MEDICARE, SELFPAY | PROVIDERS: PCP Internal Medicine; Visit Provider Internal Medicine | DX: Z00.01 Encounter for general adult medical examination with abnormal findings (principal); E78.5 Hyperlipidemia, unspecified; M85.852 Other specified disorders of bone density and structure, left thigh; L98.9 Disorder of the skin and subcutaneous tissue, unspecified; Z78.0 Asymptomatic menopausal state | CPT/HCPCS: 96127; 99397 ==

== ENCOUNTER 2024-12-07 10:42 | Outpatient (REF) | payer MEDICARE, SELFPAY ==
[2024-12-07 11:55] LABS: Alanine Aminotransferase 21 U/L (0-31); Anion Gap 11 (12-20); Aspartate Amino Transferase 26 U/L (5-31); Blood Urea Nitrogen 20 mg/dL (9-16); Calcium 9.5 mg/dL (8.4-10.2); Carbon Dioxide 25 mmol/L (22-29); Chloride 110 mmol/L (96-108); Cholesterol 219 mg/dL (<200); Estimated Glomerular Filt Rate > 60; Glucose Fasting 96 mg/dL (60-99); HDL Cholesterol 61 mg/dL (>40); LDL Cholesterol Calculated 135 mg/dL (<100); Potassium 4.2 mmol/L (3.3-5.1); Sodium 142 mmol/L (135-145); Triglycerides 116 mg/dL (<150)
[2024-12-07 11:58] LABS: Vitamin D 25-OH Total 51.2 ng/mL (>30)
[2024-12-07 12:11] LABS: Folate 12.6 ng/mL (> or = 4.0); Vitamin B12 323 pg/mL (200-900)
== END 2024-12-07 10:43 | disposition home or self-care (01) ==
LOC: HO.LAB 10:42
PROVIDERS: PCP Internal Medicine; Visit Provider Internal Medicine
DX: E78.5 Hyperlipidemia, unspecified (principal); M85.852 Other specified disorders of bone density and structure, left thigh; Z00.01 Encounter for general adult medical examination with abnormal findings; Z13.1 Encounter for screening for diabetes mellitus; Z86.0109 Personal history of other colon polyps
CPT/HCPCS: 36415; 80048; 80061; 82306; 82607; 82746; 84450; 84460